=== PATIENT | female | born 1995 | race Caucasian/White ===

== ENCOUNTER 2016-10-06 09:21 | Day surgery (SDC) | payer BC ==
[~2016-10-06] VITALS: Ht 165.1 cm; Wt 63.5 kg
[~2016-10-06 09:21] MED LIST: IBUPROFEN600 MG PO; PRENATAL TABLE1 EAC3 PO
[2016-10-06 09:53] VITALS: BP 100/52
[2016-10-06 10:28] LABS: EOSINOPHIL (%) 1.1 % (0-5); EOSINOPHIL COUNT 0.1 K/uL (0-0.3); IMMATURE GRANULOCYTE (%) 0.1 % (0.0-0.7); IMMATURE GRANULOCYTE COUNT 0.1 K/uL; LYMPHOCYTE COUNT 2.1 K/uL (1.0-2.8); MCHC 35.5 G/DL (30.0-36.0); MCV 87.2 FL (83-99); MEAN PLAT.VOLUME 8.6 uM^3 (9.5-12.4); MONOCYTE (%) 6.9 % (3-12); MONOCYTE COUNT 0.5 K/uL (0-0.8); NEUTROPHIL (%) 63.3 % (45-76); NEUTROPHIL COUNT 4.7 K/uL (1.8-6.4); PLATELET COUNT 260 K/uL (156-360); RBC DIS.WIDTH-SD 43.6 % (39-53); RED BLOOD COUNT 4.36 M/uL (3.80-5.20); WHITE BLOOD COUNT 7.4 K/uL (4.1-10.2)
[2016-10-06 10:38] LABS: CHLORIDE 107 mEq/L (99-109); POTASSIUM 3.9 mEq/L (3.7-5.4); SODIUM 137 mEq/L (136-147)
[2016-10-06 10:40] LABS: GLUCOSE 75 mg/dL (70-99)
[2016-10-06 10:41] LABS: ANION GAP 9 MEQ/L (2-14)
[2016-10-06 10:44] LABS: GFR ESTIMATE (CALCULATED) > 59 mL/min/
[2016-10-06 10:45] LABS: UREA NITROGEN (BUN) 12 mg/dL (9-23)
[2016-10-06 13:40] VITALS: BP 122/58
[2016-10-06 14:37] VITALS: BP 110/60
== END 2016-10-06 14:45 | disposition home or self-care (01) ==
LOC: SDC 09:21
PROVIDERS: Obstetrics & Gynecology
PROC: 10D17ZZ Extraction of Products of Conception, Retained, Via Natural or Artificial Opening (ICD-10-PCS; principal; 2016-10-06)
DX: O02.1 Missed abortion (principal); G40.909 Epilepsy, unspecified, not intractable, without status epilepticus
CPT/HCPCS: 80048; 85025; 86850; 86900; 86901; 88305; J0330; J1100; J1885; J2250; J2405; J2765; J3010